=== PATIENT | male | born 1965 | race Caucasian/White ===

== ENCOUNTER 2017-05-27 00:19 | Emergency (ER) | payer SELFPAY ==
[~2017-05-27] VITALS: Ht 177.8 cm; Wt 97.5 kg
[2017-05-27 00:20] VITALS: BP 163/99
[2017-05-27] MEDS ORDERED: GENTAMICIN OPTH sol 0.3% 5ml EACHEYE ONE (01:45)
== END 2017-05-27 02:00 | disposition home or self-care (01) ==
LOC: ER 00:23
DX: L71.9 Rosacea, unspecified (principal); H01.006 Unspecified blepharitis left eye, unspecified eyelid; H01.003 Unspecified blepharitis right eye, unspecified eyelid; F17.210 Nicotine dependence, cigarettes, uncomplicated
CPT/HCPCS: 99283; J7030

== ENCOUNTER 2017-06-15 11:21 | Emergency (ER) | payer MEDICAID ==
[~2017-06-15] VITALS: Ht 177.8 cm; Wt 99.8 kg
[2017-06-15 11:49] VITALS: BP 151/94
== END 2017-06-15 12:02 | disposition home or self-care (01) ==
LOC: ER 11:21
DX: L71.9 Rosacea, unspecified (principal); H10.9 Unspecified conjunctivitis; F17.210 Nicotine dependence, cigarettes, uncomplicated; F12.10 Cannabis abuse, uncomplicated

== ENCOUNTER 2017-10-16 23:11 | Emergency (ER) | payer MEDICAID ==
[~2017-10-16] VITALS: Ht 177.8 cm; Wt 108.9 kg
[2017-10-16 23:18] VITALS: BP 169/94
[2017-10-17] MEDS ORDERED: KETOROLAC TROMETH 60MG/2ML VIAL IM ONE (02:30)
== END 2017-10-17 03:44 | disposition home or self-care (01) ==
LOC: ER 23:14
DX: S33.5XXA Sprain of ligaments of lumbar spine, initial encounter (principal); F17.210 Nicotine dependence, cigarettes, uncomplicated; F12.10 Cannabis abuse, uncomplicated
CPT/HCPCS: 81002; 96372; 99283; J1885

== ENCOUNTER 2022-12-22 19:51 | Emergency (ER) | payer MEDICAID | END 2022-12-22 20:05 | disposition left against medical advice (07) | LOC: ER 19:51 | DX: J45.909 Unspecified asthma, uncomplicated (principal); Z53.21 Procedure and treatment not carried out due to patient leaving prior to being seen by health care provider ==